=== PATIENT | male | born 1985 | race Caucasian/White ===

== ENCOUNTER 2022-01-07 09:25 | Emergency (ER) | payer SELFPAY | END 2022-01-07 10:32 | disposition home or self-care (01) | LOC: MW.ED 09:25 | DX: S61.451A Open bite of right hand, initial encounter (principal); L08.9 Local infection of the skin and subcutaneous tissue, unspecified; Z86.16 Personal history of COVID-19; Z72.0 Tobacco use; W55.01XA Bitten by cat, initial encounter | CPT/HCPCS: 99283 ==